=== PATIENT | male | born 1995 | race African-American/Black ===

== ENCOUNTER 2017-05-23 19:44 | Emergency (ER) | payer OTHER ==
[~2017-05-23] VITALS: Ht 162.6 cm; Wt 89.8 kg
[2017-05-23 20:45] VITALS: BP 129/76
--- NOTE | 2017-05-23 21:15 | PHYS DOC ---
Past Medical History Past Medical History: Depression Past Surgical History: Other Additional Past Surgical Histo: testicular torsion Additional Information: vape cigs Alcohol Use: Rarely Drug Use: None Adult General Chief Complaint Chief Complaint: SHOULDER INJURY HPI HPI Patient is a 21 year old male with no significant medical history who presents today with 7 out of 10 sharp left scapular pain that has been going on intermittently worse on range of motion for the last 3 weeks. Patient denies any known injury. Patient denies any pain radiating to the chest. 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 He also does weight lifting for exercise purposes. Review of Systems Review of Systems Constitutional: Denies fever or chills [] Eyes: Denies change in visual acuity, redness, or eye pain [] HENT: Denies nasal congestion or sore throat [] Respiratory: Denies cough or shortness of breath [] Cardiovascular: No additional information not addressed in HPI [] GI: Denies abdominal pain, nausea, vomiting, bloody stools or diarrhea [] : Denies dysuria or hematuria [] Musculoskeletal: Left scapular pain Integument: Denies rash or skin lesions [] Neurologic: Denies headache, focal weakness or sensory changes [] Endocrine: Denies polyuria or polydipsia [] All other systems were reviewed and found to be within normal limits, except as documented in this note. Allergies Allergies Allergies Coded Allergies Type Severity Reaction Last Updated Verified No Known Drug Allergies 05/23/17 No Physical Exam Physical Exam Constitutional: Well developed, well nourished, no acute distress, non-toxic appearance. [] HENT: Normocephalic, atraumatic, bilateral external ears normal, oropharynx moist, no oral exudates, nose normal. [] Eyes: PERRLA, EOMI, conjunctiva normal, no discharge. [] Neck: Normal range of motion, no tenderness, supple, no stridor. [] Cardiovascular:Heart rate regular rhythm, no murmur [] Lungs & Thorax: Bilateral breath sounds clear to auscultation [] Abdomen: Bowel sounds normal, soft, no tenderness, no masses, no pulsatile masses. [] Skin: Warm, dry, no erythema, no rash. [] Back: No tenderness, no CVA tenderness. [] Extremities: Left shoulder with no obvious deformity. No tenderness on palpation of the left shoulder. Pain elicited to the left scapula on range of motion especially on abduction. Adequate plantar flexion and this flexion of the left forearm. +2 left radial pulse. Cap refill less than 2 seconds the left upper extremity. Adequate radial medial and ulnar sensation to the left upper extremity. Neurologic: Alert and oriented X 3, normal motor function, normal sensory function, no focal deficits noted. [] Psychologic: Affect normal, judgement normal, mood normal. [] Current Patient Data Vital Signs Vital Signs Date Time Temp Pulse Resp B/P (MAP) Pulse Ox O2 Delivery O2 Flow Rate FiO2 05/23/17 20:45 97.7 99 18 97 Room Air 97.7 EKG EKG [] Radiology/Procedures Radiology/Procedures [] Course & Med Decision Making Course & Med Decision Making Pertinent Labs and Imaging studies reviewed. (See chart for details) Patient is in the ED with left shoulder pain with no known injury. Left shoulder x-rays interpreted by Dr. Kothari were negative for any acute findings. Patient was discharged with naproxen and Flexeril. Instructed to follow-up with orthopedic doctor provided in the next 7 days. Dragon Disclaimer Dragon Disclaimer This electronic medical record was generated, in whole or in part, using a voice recognition dictation system. Departure Departure Impression: Primary Impression: Pain of left scapula Disposition: 01 HOME, SELF-CARE Condition: STABLE Referrals: NO PCP (PCP) Follow-up in one week ZOLTAN PALMER MD Patient Instructions: Shoulder Pain, [id number] Additional Instructions: You were seen for left shoulder pain. Your shoulder x-rays were negative for any acute findings. Please follow-up with the provided orthopedic doctor in the next 7 days. You can apply ice to the affected area. Avoid lifting anything greater than a gallon of milk in the next 7 days. Scripts Naproxen (NAPROXEN) 500 Mg Tablet. 1 TAB PO BID, #60 TAB 1 Refill Prov: USMAN PATINO APRN 05/23/17 Cyclobenzaprine Hcl (CYCLOBENZAPRINE HCL) 10 Mg Tablet 1 TAB PO TID, #30 TAB Prov: USMAN PATINO APRN 05/23/17 USMAN PATINO APRN May 23, 2017 21:15
[2017-05-23] MEDS ORDERED: CYCL10TA2 PO (21:17)
[2017-05-23] MEDS ORDERED: NAPR500T8 PO (21:17)
--- NOTE | 2017-05-24 08:16 | RAD ---
Left shoulder, 3 views, 05/23/2017: History: Shoulder pain. No fracture or destructive bony lesion is seen. The periarticular soft tissues are unremarkable. IMPRESSION: No significant left shoulder abnormality is detected.
== END 2017-05-23 21:27 | disposition home or self-care (01) ==
LOC: ER 19:44
DX: M25.512 Pain in left shoulder (principal); Z72.0 Tobacco use
CPT/HCPCS: 73030; 99284